=== PATIENT | male | born 1955 | race Caucasian/White ===

== ENCOUNTER 2020-06-23 09:30 | Outpatient (RCR) | payer MEDICARE, OTHER, SELFPAY ==
--- NOTE | 2020-06-23 11:32 | PCCPR ---
PATIENT COMPLETED 20 TOTAL PULMONARY REHAB SESSIONS FOR PRE OP LVRS. PT TO RETURN TO PHASE 3 REHAB ONE DAY A WEEK UNTIL SURGERY. PLANNED FOR LATE JULY.
== END 2020-06-23 11:37 | disposition home or self-care (01) ==
PROVIDERS: PCP Family Medicine; Visit Provider Thoracic Surgery (Cardiothoracic Vascular Surgery)
DX: J43.9 Emphysema, unspecified (principal)
CPT/HCPCS: G0302

== ENCOUNTER 2020-07-19 09:30 | Outpatient (RCR) | payer SELFPAY | END 2020-07-19 13:00 | disposition home or self-care (01) | LOC: CHSCPRIII 09:30 | PROVIDERS: PCP Family Medicine; Visit Provider Thoracic Surgery (Cardiothoracic Vascular Surgery) | DX: J43.9 Emphysema, unspecified (principal) | CPT/HCPCS: 99199 ==

== ENCOUNTER 2020-10-18 09:30 | Outpatient (RCR) | payer MEDICARE, OTHER, SELFPAY | END 2020-10-18 11:40 | disposition home or self-care (01) | PROVIDERS: Visit Provider Thoracic Surgery (Cardiothoracic Vascular Surgery) | DX: J43.9 Emphysema, unspecified (principal); Z98.890 Other specified postprocedural states | CPT/HCPCS: 99199; G0305 ==

== ENCOUNTER 2021-01-26 07:29 | Outpatient (CLI) | payer MEDICARE, OTHER, SELFPAY ==
[2021-01-26 08:00] VITALS: PULSE 80; O2SAT 92
[2021-01-26 08:10] VITALS: PULSE 87; O2SAT 89
--- NOTE | 2021-01-26 08:13 | HOMEO2EVAL ---
Evaluation was performed at [facility] Home Oxygen Evaluation RC: Home Oxygen (O2) Evaluation Start: 01/26/21 08:08 Freq: Status: Active Protocol: RPE Activity Type Activity Date Activity User E-Sign Co-Sign Detail Recorded Client Recorded Date Recorded By Document 01/26/21 08:00 TORITO [id number] 01/26/21 08:12 SJB Document 01/26/21 08:10 SJB [id number] 01/26/21 08:12 SJB 01/26/21 01/26/21 08:00 08:10 Home O2 Evaluation Test Phase Resting Exercise Oxygen Delivery Room Air Room Air Pulse Oximetry (90-100 %) 92 89 L Pulse Rate (60-100 beats/min) 80 87 Activity Tolerance Good Rating of Perceived Dyspnea (PD) +1 Mild, Noticeable to the Participant but Not to an Observer Rate of Perceived Exertion (PE) 11 Fairly light Ambulation Distance (feet) 700 Home Oxygen Evaluation Comments Will begin Pt walked on r/ exercise now on a approx 700 ft r/a. pushing wheelchair. Tolerated very well, PLB encouraged. Sp02 remained at 89% and above throughout the walk on room air. Treatment Charges O2 Evaluation - Outpatient
== END 2021-01-26 07:30 | disposition home or self-care (01) ==
LOC: CHSCARD 07:33
DX: J44.9 Chronic obstructive pulmonary disease, unspecified (principal); Z09 Encounter for follow-up examination after completed treatment for conditions other than malignant neoplasm
CPT/HCPCS: 94618